=== PATIENT | female | born 1960 ===

== ENCOUNTER 2022-01-03 18:09 | Inpatient (IN) | payer MEDICARE ==
[2022-01-03] MEDS ORDERED: MAG HYDROX/AL HYDROX/SIMETH 30 ML CUP PO PRN (19:13)
[2022-01-04] MEDS: LORazepam 1 MG TAB PO PRN ×2 (02:54→17:03)
[2022-01-04] MEDS: NICOTINE 14MG/24HR PATCH TRANSDERM SCH (07:58)
[2022-01-04] MEDS: LORazepam 2 MG/ML INJ IM PRN ×2 (10:17→21:52)
[2022-01-04] MEDS: HALOPERIDOL LACTATE 5 MG/ML 1 ML VIAL IM PRN ×2 (10:18→21:52)
[2022-01-04 11:16] LABS: Basophils # (A) 0.1 k/uL (0-0.2); Basophils % (A) 1 %; Eosinophils # (A) 0.1 k/uL (0-0.7); Eosinophils % (A) 1 %; Lymphocytes # (A) 1.3 k/uL (1.0-4.8); Lymphocytes % (A) 19 %; MCH 30.8 pg (25.0-35.0); MCV 90.5 fL (80.0-100.0); Mean Platelet Volume 7.7; Monocytes # (A) 0.4 k/uL (0-1.0); Monocytes % (A) 5 %; Neutrophils # (A) 4.9 k/uL (1.3-7.7); Neutrophils % (A) 73 %; Platelet Count 309 k/uL (150-450); RBC 4.53 m/uL (3.80-5.40); RDW 14.2 % (11.5-15.5); WBC 6.8 k/uL (3.8-10.6)
[2022-01-04 11:26] LABS: ALT 16 U/L (4-34); AST 23 U/L (14-36); African American GFR (CKD) >90 (>60 ml/min/1.73 sqM); Albumin 4.5 g/dL (3.5-5.0); Alkaline Phosphatase 79 U/L (38-126); Anion Gap 12 mmol/L; Blood Urea Nitrogen 17 mg/dL (7-17); Calcium 9.6 mg/dL (8.4-10.2); Carbon Dioxide 21 mmol/L (22-30); Chloride 104 mmol/L (98-107); Glucose 105 mg/dL (74-99); Non-African American GFR(CKD) >90 (>60 ml/min/1.73 sqM); Potassium 4.6 mmol/L (3.5-5.1); Sodium 137 mmol/L (137-145); Total Bilirubin 0.5 mg/dL (0.2-1.3); Total Protein 7.4 g/dL (6.3-8.2)
--- NOTE | 2022-01-04 11:38 | P.HP ---
Psychiatric H&P - . H&P Date: 01/04/22 History & Physical: Allergies Allergy/AdvReac Type Severity Reaction Status Date / Time No Known Allergies Allergy Verified 01/04/22 02:35 Vital Signs Temp 97.3 F L 01/04/22 03:27 Pulse 74 01/04/22 03:27 Resp 20 01/04/22 03:27 BP 145/82 01/04/22 03:27 Pulse Ox 98 01/04/22 03:27 FiO2 Intake & Output 01/03/22 01/04/22 01/04/22 18:59 06:59 18:59 Weight 84.5 kg 84.5 kg Laboratory Last Values WBC 6.8 k/uL (3.8-10.6) 01/04/22 10: RBC 4.53 m/uL (3.80-5.40) 01/04/22 10:19 Hgb 14.0 gm/dL (11.4-16.0) 01/04/22 10:19 Hct 41.0 % (34.0-46.0) 01/04/22 10:19 MCV 90.5 fL (80.0-100.0) 01/04/22 10:19 MCH 30.8 pg (25.0-35.0) 01/04/22 10:19 MCHC 34.0 g/dL (31.0-37.0) 01/04/22 10:19 RDW 14.2 % (11.5-15.5) 01/04/22 10:19 Plt Count 309 k/uL (150-450) 01/04/22 10:19 MPV 7.7 01/04/22 10:19 Neutrophils % 73 % 01/04/22 10:19 Lymphocytes % 19 % 01/04/22 10:19 Monocytes % 5 % 01/04/22 10:19 Eosinophils % 1 % 01/04/22 10:19 Basophils % 1 % 01/04/22 10:19 Neutrophils # 4.9 k/uL (1.3-7.7) 01/04/22 10:19 Lymphocytes # 1.3 k/uL (1.0-4.8) 01/04/22 10:19 Monocytes # 0.4 k/uL (0-1.0) 01/04/22 10:19 Eosinophils # 0.1 k/uL (0-0.7) 01/04/22 10:19 Basophils # 0.1 k/uL (0-0.2) 01/04/22 10:19 Sodium 137 mmol/L (137-145) 01/04/22 10:19 Potassium 4.6 mmol/L (3.5-5.1) 01/04/22 10:19 Chloride 104 mmol/L (98-107) 01/04/22 10:19 Carbon Dioxide 21 mmol/L (22-30) L 01/04/22 10:19 Anion Gap 12 mmol/L 01/04/22 10:19 BUN 17 mg/dL (7-17) 01/04/22 10:19 Creatinine 0.64 mg/dL (0.52-1.04) 01/04/22 10:19 Est GFR (CKD-EPI)AfAm >90 (>60 ml/min/1.73 sqM) 01/04/22 10:19 Est GFR (CKD-EPI)NonAf >90 (>60 ml/min/1.73 sqM) 01/04/22 10:19 Glucose 105 mg/dL (74-99) H 01/04/22 10:19 Calcium 9.6 mg/dL (8.4-10.2) 01/04/22 10:19 Total Bilirubin 0.5 mg/dL (0.2-1.3) 01/04/22 10:19 AST 23 U/L (14-36) 01/04/22 10:19 ALT 16 U/L (4-34) 01/04/22 10:19 Alkaline Phosphatase 79 U/L (38-126) 01/04/22 10:19 Total Protein 7.4 g/dL (6.3-8.2) 01/04/22 10:19 Albumin 4.5 g/dL (3.5-5.0) 01/04/22 10:19 01/04/22 11:[address] Juan Summers M.D. dictating the psychiatric assessment on Lara Ingram who is a 61-year-old female and who presents with severe anxiety and depression Patient remains a poor historian and is unable to give proper history When seen today she was sitting in the hallway rambling and talking to one of the staff members and was refusing to come into her room Patient stated that she was in the hospital because they messed up her medic ations at the last hospitalization She says that she has had 5 hospitalizations in the last 2 months and several of them were on the medical floor for hand tremors Patient states that she does not know what is going on She was unable to list her current medications and also is not willing to have any new medications started She states that she has difficulty with making any decisions at this time and wants more time She admits feeling overwhelmed and helpless and hopeless She did not verbalize any suicidal ideations or plans at this time She denied any substance use Patient's home medications includes lisinopril 10 mg daily Ambien 10 mg daily at bedtime when necessary Synthroid 50 g daily Simvastatin 40 mg daily Trazodone 300 mg daily at bedtime Cymbalta 30 mg daily Buspirone 15 mg twice a day And anastrozole 1 mg daily Past history personal and social history Could not be collected at this time due to patient's current mental status where she seemed to be too agitated and anxious and unwilling to give any specific details Further information will be collected at a later date when patient is able to cooperate and participate adequately Mental Status Exam: General Appearance: Patient appears to be stated age, is disheveled, dressed in hospital gown. Sitting on the hallway with her head between her legs slouched posture and anxious Orientation: he is alert, oriented to person, place, Behavior: Patient is anxious. sHe is emotional, no crying Speech: Patient's speech is somewhat pressured and circumstantial Mood/Affect: Mood is anxious Suicidality/Homicidality: Patient denies having any suicidal or homicidal ideation intent or plan. Perceptions: Patient denies any visual hallucinations and denies any auditory hallucinations. Though content: There is evidence of paranoid delusional thought content, although patient comes across as rather projective and seems to rationalize and intellectualize. Thought process: Projective Low self-esteem and confidence Memory and concentration: Grossly intact for the purposes of this session. Judgment and insight: Impaired Problem-solving skills are poor Assessment: Major depressive disorder acute Rule out bipolar disorder depressed type Anxiety disorder unspecified Rule out personality disorder unspecified Plan: -Patient continues to meet criteria for inpatient psychiatric admission for symptom stabilization and safety. -Medications: Continue her general medications for general health issues as prescribed Which includes simvastatin 40 mg daily Anastrozole 1 mg daily Synthroid 50 g daily Patient does not want to take her psychotropic medications at this time and we'll hold them -When necessary Ativan and Haldol for agitation/aggression. -NRT - nicotine patch -KIRSTEN on board for discharge planning. Encouraged the patient to participate in milieu. [ Juan Summers M.D. 01/04/2022]
[2022-01-04] MEDS: lisinopriL 10 MG TAB PO SCH (12:35)
[2022-01-04 18:17] LABS: Chol/HDL Ratio 3.08 Ratio; LDL Cholesterol,Calculated 69.3 mg/dL (0.0-131.0)
[2022-01-05] MEDS: LEVOTHYROXINE 50 MCG TAB PO SCH (05:44)
[2022-01-05] MEDS: haloperidoL 5 MG TAB PO PRN (05:44)
[2022-01-05] MEDS: LORazepam 1 MG TAB PO PRN ×2 (05:44→17:03)
[2022-01-05 06:39] LABS: Appearance,Urine Clear (Clear); Bacteria,Urine Rare /hpf; Bilirubin,Urine Negative (Negative); Blood,Urine Negative (Negative); Color,Urine Yellow; Glucose,Urine (UA) Negative (Negative); Ketones,Urine Negative (Negative); Leukocyte Esterase,Urine Small (Negative); Mucus,Urine Few /hpf; Nitrite,Urine Negative (Negative); PH, Urine 5.5 (5.0-8.0); Protein,Urine Negative (Negative); RBC,Urine 1 /hpf (0-5); Specific Gravity,Urine 1.012 (1.001-1.035); Squamous Epithelial Cell,Urine <1 /hpf (0-4); Urobilinogen,Urine <2.0 mg/dL (<2.0); WBC,Urine 7 /hpf (0-5)
[2022-01-05] MEDS: ANASTROZOLE 1 MG TAB PO SCH (09:18)
[2022-01-05] MEDS: lisinopriL 10 MG TAB PO SCH (09:18)
[2022-01-05] MEDS: ATORVASTATIN 20 MG TAB PO SCH (09:18)
[2022-01-05] MEDS: NICOTINE 14MG/24HR PATCH TRANSDERM SCH (09:20)
[2022-01-05 09:38] LABS: Urine Alcohol Negative (Negative); Urine Barbiturate Positive (Negative); Urine Cocaine Negative (Negative); Urine Methadone Negative (Negative); Urine Opiates Negative (Negative); Urine Phencyclidine Negative (Negative)
[2022-01-05] MEDS: MAGNESIUM HYDROXIDE 2,400 MG/10 ML CUP PO PRN (09:58)
[2022-01-05] MEDS ORDERED: PROPRANOLOL 20 MG TAB PO STA (11:40)
[2022-01-05] MEDS ORDERED: chlorproMAZINE 25 MG TAB PO STA (11:41)
[2022-01-05] MEDS ORDERED: hydrOXYzine pamoate 25 MG CAP PO STA (11:42)
--- NOTE | 2022-01-05 13:20 | P.PN ---
Progress Note - Text Progress Note Date: 01/05/22 Interval History: Patient was seen resting in bed and was directable and agreeable to speak with securities underwriter in the office. The patient reports that she has been unable to sleep. She expresses that she has been feeling very unwell for the past few months with worsening tremors, excessive energy, racing thoughts, and an inability to focus. The patient reports that she also has been acting impulsively lately and spent $800 on a cell phone because she felt that her current cell phone was not working appropriately in that she was missing some messages. The patient is agreeable to starting psychotropic medications at this time. Her primary focus is to get some sleep. Mental Status Exam: General Appearance: Patient appears to be stated age is alert, directable, and cooperative. At times demanding. Behavior: Patient is quite tremulous throughout the interview. Eye contact is intense. Psychomotor agitation is evident. Speech: Patient's speech is fluent and nonpressured. Repetitive and ruminative. Mood/Affect: Mood is "not good at all," affect is congruent and dysphoric. Suicidality/Homicidality: Patient denies having any suicidal or homicidal ideation intent or plan. Perceptions: Patient denies any visual hallucinations and denies any auditory hallucinations Though content/process: The patient is endorsing a flight of ideas and racing thoughts. The patient also reports extremely worried thoughts. Memory and concentration: AOX3, grossly intact for the purposes of this session Judgment and insight: Poor Vital Signs Temp 97.0 F L 01/05/22 05:49 Pulse 73 01/05/22 05:49 Resp 20 01/05/22 05:49 BP 111/75 01/05/22 05:49 Pulse Ox 98 01/04/22 03:27 FiO2 Intake & Output 01/04/22 01/05/22 01/05/22 18:59 06:59 18:59 Weight 84.5 kg Laboratory Results - Last 24 Hours 01/04/22 01/04/22 01/05/22 10:19 10:19 06:[address] Glu mg/dL 112 Hemoglobin A1c 5.5 Triglycerides 123.00 Cholesterol 139.00 LDL Cholesterol, Calc 69.3 VLDL Cholesterol, Calc 24.60 HDL Cholesterol 45.10 Cholesterol/HDL Ratio 3.08 Urine Color Yellow Urine Appearance Clear Urine pH 5.5 Ur Specific [place] 1.012 Urine Protein Negative Urine Glucose (UA) Negative Urine Ketones Negative Urine Blood Negative Urine Nitrite Negative Urine Bilirubin Negative Urine Urobilinogen <2.0 Ur Leukocyte Esterase Small H Urine RBC 1 Urine WBC 7 H Ur Squamous Epith Cells <1 Urine Bacteria Rare H Urine Mucus Few H Urine HCG, Qual Urine Opiates Screen Urine Methadone Screen Ur Propoxyphene Screen Urine Barbiturates Ur Phencyclidine Scrn Ur Amphetamine Screen U Benzodiazepines Scrn Urine Cocaine Screen U Cannabinoids Screen Urine Alcohol 01/05/22 01/05/22 06:00 06:[address] Glu mg/dL Hemoglobin A1c Triglycerides Cholesterol LDL Cholesterol, Calc VLDL Cholesterol, Calc HDL Cholesterol Cholesterol/HDL Ratio Urine Color Urine Appearance Urine pH Ur Specific [place] Urine Protein Urine Glucose (UA) Urine Ketones Urine Blood Urine Nitrite Urine Bilirubin Urine Urobilinogen Ur Leukocyte Esterase Urine RBC Urine WBC Ur Squamous Epith Cells Urine Bacteria Urine Mucus Urine HCG, Qual Not Detected Urine Opiates Screen Negative Urine Methadone Screen Negative Ur Propoxyphene Screen Negative Urine Barbiturates Positive A Ur Phencyclidine Scrn Negative Ur Amphetamine Screen Negative U Benzodiazepines Scrn Negative Urine Cocaine Screen Negative U Cannabinoids Screen Negative Urine Alcohol Negative Assessment Bipolar disorder, type I, mixed episode Generalized anxiety disorder Plan: -Patient continues to meet criteria for inpatient psychiatric admission for symptom stabilization and safety. Patient has signed adult voluntary form and medication consent and was placed in patient's chart. -Medications: We will administer one-time dose of Thorazine and Vistaril for the patient's acute symptoms. We will start Inderal 20 mg by mouth twice a day for anxiety and for tremors Start Seroquel 200 mg daily at bedtime for insomnia/mood stabilization Start Remeron 15 mg by mouth at bedtime for insomnia/appetite stimulation -When necessary Ativan and Haldol for agitation/aggression. -SW on board for discharge planning. Encouraged the patient to participate in milieu.
[2022-01-05] MEDS: ACETAMINOPHEN TAB 325 MG TAB PO PRN (18:32)
[2022-01-05] MEDS ORDERED: LORazepam 1 MG/0.5 ML VIAL IM PRN (18:41)
[2022-01-05] MEDS: PROPRANOLOL 20 MG TAB PO SCH (20:39)
[2022-01-05] MEDS ORDERED: MIRTAZAPINE 15 MG TAB PO SCH (21:00)
[2022-01-05] MEDS ORDERED: QUEtiapine 200 MG TAB PO SCH (21:00)
[2022-01-06] MEDS: LEVOTHYROXINE 50 MCG TAB PO SCH (06:31)
[2022-01-06] MEDS: LORazepam 1 MG TAB PO PRN ×2 (06:32→13:42)
[2022-01-06] MEDS: haloperidoL 5 MG TAB PO PRN ×2 (06:32→14:33)
[2022-01-06] MEDS: ANASTROZOLE 1 MG TAB PO SCH (08:58)
[2022-01-06] MEDS: lisinopriL 10 MG TAB PO SCH (08:58)
[2022-01-06] MEDS: ATORVASTATIN 20 MG TAB PO SCH (08:58)
[2022-01-06] MEDS: PROPRANOLOL 20 MG TAB PO SCH ×3 (08:59→21:59)
[2022-01-06] MEDS: NICOTINE 14MG/24HR PATCH TRANSDERM SCH (10:21)
--- NOTE | 2022-01-06 13:38 | P.PN ---
Progress Note - Text Progress Note Date: 01/06/22 Interval History: Patient was seen resting in bed and was directable and agreeable to speak with specifications writer in the office. The patient continues to endorse elevated anxiety and panic. She does report that she had difficulty with sleep last night and has continued to express concern about her ability to function and participate in society. She states that things are "just not getting better." She continues to endorse suicidal ideation however denies any homicidal ideation, intention, and/or plan. She reports no auditory or visualizations. She denies any paranoia or other delusions. The patient has been adherent with her medications and is not reporting any significant side effects at this time. She states that she has been unable to sleep despite staff noting that she was able to sleep 5-6 hours last night. The patient was encouraged to step outside of her room to help address her anxiety so that she may ease herself into being in more of a public space. Mental Status Exam: General Appearance: Patient appears to be stated age is alert, directable, and cooperative. Behavior: Patient is calmly seated without any agitated behavior. Patient displays some tremors but is less prominent than yesterday. Speech: Patient's speech is fluent and nonpressured. Mood/Affect: Mood is very. Affect is congruent and anxious. Suicidality/Homicidality: Patient endorses suicidal ideation however denies any homicidal ideation. Perceptions: Patient denies any visual hallucinations and denies any auditory hallucinations Though content/process: There is no evidence of any delusional thought content and thought process is linear and goal-directed. Memory and concentration: AOX3, grossly intact for the purposes of this session Judgment and insight: Improving mildly Vital Signs Temp 97.9 F 01/06/22 06:38 Pulse 84 01/06/22 09:01 Resp 18 01/06/22 06:38 BP 164/108 01/06/22 09:01 Pulse Ox 98 01/06/22 06:38 FiO2 Assessment Bipolar disorder, type I, mixed episode Generalized anxiety disorder Plan: -Patient continues to meet criteria for inpatient psychiatric admission for symptom stabilization and safety. Patient has signed adult voluntary form and medication consent and was placed in patient's chart. -Medications: We'll increase Inderal to 20 mg by mouth 3 times a day for anxiety and for tremors Increase Seroquel to 300 mg at bedtime for insomnia/mood stabilization We will change Remeron to Sinequan 25 mg at bedtime for insomnia/anxiety -When necessary Ativan and Haldol for agitation/aggression. -SW on board for discharge planning. Encouraged the patient to participate in milieu.
[2022-01-06] MEDS: ACETAMINOPHEN TAB 325 MG TAB PO PRN (19:16)
[2022-01-06] MEDS: QUEtiapine 100 MG TAB PO SCH (20:29)
[2022-01-06] MEDS ORDERED: DOXEPIN 25 MG CAP PO SCH (21:00)
[2022-01-07] MEDS: haloperidoL 5 MG TAB PO PRN (01:41)
[2022-01-07] MEDS: LORazepam 1 MG TAB PO PRN (01:41)
[2022-01-07] MEDS: LEVOTHYROXINE 50 MCG TAB PO SCH (06:56)
[2022-01-07] MEDS: lisinopriL 10 MG TAB PO SCH (08:51)
[2022-01-07] MEDS: ATORVASTATIN 20 MG TAB PO SCH (08:51)
[2022-01-07] MEDS: ANASTROZOLE 1 MG TAB PO SCH (08:51)
[2022-01-07] MEDS: PROPRANOLOL 20 MG TAB PO SCH ×3 (08:51→20:34)
[2022-01-07] MEDS: MAGNESIUM HYDROXIDE 2,400 MG/10 ML CUP PO PRN (08:52)
[2022-01-07] MEDS ORDERED: LORazepam 1 MG TAB PO STA (10:06)
[2022-01-07] MEDS: LORazepam 1 MG/0.5 ML VIAL IM STA ×3 (10:15→11:31)
--- NOTE | 2022-01-07 11:45 | P.PN ---
Progress Note - Text Progress Note Date: 01/07/22 Interval History: Patient was seen resting in bed and was directable and agreeable to speak with hand sign writer in the office. The patient continues to endorse elevated anxiety and her difficulty in falling asleep. She continues to report constantly racing thoughts. She states repetitively "I am not well, I am not well, I am not well." She reports that her issues with sleep and anxiety are not being appropriately addressed. She is not reporting any suicidal or homicidal angélica ation, intention,/or plan. However in the office, the patient comes quite tremulous and ruminative and non-directable. It takes her approximately 5 minutes to collect herself before being redirected out of the room to receive Ativan. Mental Status Exam: General Appearance: Patient appears to be stated age is alert, difficult to direct, and intermittently cooperative. Behavior: Patient displays elevated psychomotor activity, tremulousness, and at times appears to be "locked and frozen in place." Speech: Patient's speech is fluent and nonpressured. Mood/Affect: Mood is very nervous. Affect is congruent and very anxious and dysphoric. Suicdality/Homicidality: Patient denies any suicidal or homicidal ideation. Perceptions: Patient denies any visual hallucinations and denies any auditory h allucinations Though content/process: Patient is fixated on her symptoms of anxiety and difficulty with sleep despite staff noting that she has been sleeping despite staff noting that her complaints of shortness of breath and palpitations are not consistent with her physical presentation with stable vitals. Memory and concentration: AOX3, grossly intact for the purposes of this session Judgment and insight: Poor Vital Signs Temp 97.7 F 01/07/22 06:42 Pulse 82 01/07/22 08:55 Resp 14 01/07/22 06:42 BP 133/73 01/07/22 08:55 Pulse Ox 98 01/06/22 20:31 FiO2 Assessment Bipolar disorder, type I, mixed episode Generalized anxiety disorder with panic Plan: -Patient continues to meet criteria for inpatient psychiatric admission for symptom stabilization and safety. Patient has signed adult voluntary form and medication consent and was placed in patient's chart. -Medications: Continue Inderal 20 mg by mouth 3 times a day for anxiety and for tremors Increase Seroquel to 50 mg in the morning and 300 mg at bedtime for insomnia/mood stabilization Increase Sinequan to 50 mg at bedtime for insomnia/anxiety -When necessary Ativan and Haldol for agitation/aggression. -SW on board for discharge planning. Encouraged the patient to participate in milieu.
--- NOTE | 2022-01-07 15:55 | P.CONS ---
History of Present Illness - Chief Complaint Depression - History of Present Illness 89-year-old female with past medical history significant for breast cancer status post left-sided mastectomy with chemo radiation on May 18 she is currently on hormonal therapy with anastrozole. Patient also has history of hypertension and dyslipidemia and hypothyroidism. Admitted to the psych at on July 07 with severe depression and anxiety. Patient is very anxious during the interview. She is alert oriented 3. She denies any chest pain or shortness of breath. Patient denies any nausea vomiting or abdominal pain. Patient denies any fever chills or cough. She stated that she is compliant with her medication. Other than she is very anxious and depressed she denies any complaints. Review of system: All 14 review of systems evaluated and all negative except for above. Physical examination: General: non toxic, very anxious, appears at stated age Derm: warm, dry Head: atraumatic, normocephalic, symmetric Eyes: EOMI, no lid lag, anicteric sclera Mouth: no lip lesion, mucus membranes moist Cardiovascular: S1S2 reg, no murmur, positive posterior tibial pulse bilateral, Lungs: CTA bilateral, no rhonchi, no rales , no accessory muscle use Abdominal: soft, nontender to palpation, no guarding, no appreciable organomegaly Ext: no gross muscle atrophy, no edema, no contractures Neuro: CN II-XI grossly intact, no focal neuro deficits Psych: Alert, oriented, appropriate affect Assessment and plan: #Depression and anxiety -Management per psych service #Hypothyroidism -TSH is slightly elevated with normal T4 -Repeat thyroid testing -Resume levothyroxine #Hypertension -Controlled -Resume lisinopril #History of breast cancer status post left mastectomy with chemo radiation -Resume anastrozole #Dyslipidemia -Resume Zocor Past Medical History Past Medical History: Hyperlipidemia, Hypertension Additional Past Medical History / Comment(s): UTI and Breast cancer History of Any Multi-Drug Resistant Organisms: None Reported Past Surgical History: No Surgical Hx Reported Past Anesthesia/Blood Transfusion Reactions: No Reported Reaction Smoking Status: Never smoker Medications and Allergies Home Medications Medication Instructions Recorded Confirmed Type Anastrozole 1 mg PO DAILY 01/04/22 01/04/22 History DULoxetine HCL [Cymbalta] 30 mg PO DAILY 01/04/22 01/04/22 History Levothyroxine Sodium [Synthroid] 50 mcg PO DAILY 01/04/22 01/04/22 History Simvastatin 40 mg PO DAILY 01/04/22 01/04/22 History Zolpidem [Ambien] 10 mg PO HS PRN 01/04/22 01/04/22 History busPIRone HCl [Buspar] 15 mg PO BID 01/04/22 01/04/22 History lisinopriL [Zestril] 10 mg PO DAILY 01/04/22 01/04/22 History traZODone HCL [Trazodone HCl] 300 mg PO HS 01/04/22 01/04/22 History Allergies Allergy/AdvReac Type Severity Reaction Status Date / Time No Known Allergies Allergy Verified 01/04/22 02:35 Physical Exam Vitals: Vital Signs Temp Pulse Pulse Resp BP BP Pulse Ox 01/07/22 08:55 82 133/73 01/07/22 06:42 97.7 F 65 14 101/53 01/07/22 01:40 79 16 117/56 01/06/22 20:31 72 17 117/71 98 01/06/22 16:23 77 127/82 Results CBC & Chem 7: 01/04/22 10:19 01/04/22 10:19
[2022-01-07] MEDS: QUEtiapine 100 MG TAB PO SCH (20:32)
[2022-01-07] MEDS: ACETAMINOPHEN TAB 325 MG TAB PO PRN (20:34)
[2022-01-07] MEDS: DOXEPIN 25 MG CAP PO SCH (21:14)
[2022-01-08] MEDS: haloperidoL 5 MG TAB PO PRN (00:19)
[2022-01-08] MEDS: LORazepam 1 MG TAB PO PRN ×2 (00:19→13:44)
[2022-01-08] MEDS: LEVOTHYROXINE 50 MCG TAB PO SCH (06:55)
[2022-01-08] MEDS: HALOPERIDOL LACTATE 5 MG/ML 1 ML VIAL IM PRN (08:58)
[2022-01-08] MEDS ORDERED: QUEtiapine 50 MG TAB PO SCH (09:00)
[2022-01-08] MEDS: ANASTROZOLE 1 MG TAB PO SCH (09:04)
[2022-01-08] MEDS: lisinopriL 10 MG TAB PO SCH (09:04)
[2022-01-08] MEDS: ATORVASTATIN 20 MG TAB PO SCH (09:04)
[2022-01-08] MEDS: PROPRANOLOL 20 MG TAB PO SCH ×3 (09:04→21:10)
[2022-01-08] MEDS ORDERED: chlorproMAZINE 25 MG/ML 2 ML AMP IM PRN (09:39)
[2022-01-08] MEDS ORDERED: chlorproMAZINE 25 MG/ML 2 ML AMP IM STA (09:59)
--- NOTE | 2022-01-08 11:48 | P.PN ---
Progress Note - Text Progress Note Date: 01/08/22 Interval History: Patient was seen resting in bed and was directable and agreeable to speak with personal lines underwriter in the office. The patient had an episode earlier today where she was "unable to be alone." She was found laying on the floor of the engines to her room. She was also noted to be hitting the wall as well as herself. The patient states that she is unable to control her racing mind and that she feels out of control. She has been placed on one-to-one supervision. The patient expresses that she continues to feel extremely anxious and unable to sleep, rest, and have her mind slow down. She reports that none of the medication have been helping. She denies any suicidal or homicidal ideation, intention, and/or plan. She denies any auditory or visual hallucinations. She reports that she decided to hit herself because she felt like there is nothing else for her to do in order to calm down. Mental Status Exam: General Appearance: Patient appears to be stated age is alert, difficult to direct, and intermittently cooperative. Behavior: Patient displays elevated psychomotor activity, tremulousness Speech: Patient's speech is fluent and nonpressured. Mood/Affect: Mood is very nervous. Affect is congruent and very anxious and dysphoric. Suicdality/Homicidality: Patient denies any suicidal or homicidal ideation. Perceptions: Patient denies any visual hallucinations and denies any auditory hallucinations Though content/process: Ruminative and concrete. Memory and concentration: AOX3, grossly intact for the purposes of this session Judgment and insight: Poor Vital Signs Temp 97.5 F L 01/08/22 03:30 Pulse 79 01/08/22 09:10 Resp 18 01/08/22 03:30 BP 129/73 01/08/22 09:10 Pulse Ox 98 01/06/22 20:31 FiO2 Laboratory Results - Last 24 Hours 01/07/22 16:00 TSH 4.350 Assessment Bipolar disorder, type I, mixed episode Generalized anxiety disorder with panic Plan: -Patient continues to meet criteria for inpatient psychiatric admission for sy mptom stabilization and safety. Patient has signed adult voluntary form and medication consent and was placed in patient's chart. -Medications: Continue Inderal 20 mg by mouth 3 times a day for anxiety and for tremors Discontinue Seroquel and start Risperdal 3 mg by mouth twice a day for mood stabilization Continue Sinequan 50 mg at bedtime for insomnia/anxiety We will schedule Valium 5 mg by mouth 3 times a day for anxiety -When necessary Ativan and Thorazine for agitation/aggression. -SW on board for discharge planning. Encouraged the patient to participate in milieu.
[2022-01-08] MEDS: diazePAM 5 MG TAB PO SCH ×2 (15:17→20:45)
[2022-01-08] MEDS: ACETAMINOPHEN TAB 325 MG TAB PO PRN (17:08)
[2022-01-08] MEDS: risperiDONE 1 MG TAB PO SCH (20:45)
[2022-01-08] MEDS: DOXEPIN 25 MG CAP PO SCH (20:45)
[2022-01-08] MEDS: BENZTROPINE MESYLATE 0.5 MG TAB PO SCH (20:45)
[2022-01-09] MEDS: LORazepam 1 MG TAB PO PRN ×2 (06:36→13:27)
[2022-01-09] MEDS: LEVOTHYROXINE 50 MCG TAB PO SCH (06:36)
[2022-01-09] MEDS: ANASTROZOLE 1 MG TAB PO SCH (08:24)
[2022-01-09] MEDS: lisinopriL 10 MG TAB PO SCH (08:24)
[2022-01-09] MEDS: ATORVASTATIN 20 MG TAB PO SCH (08:24)
[2022-01-09] MEDS: diazePAM 5 MG TAB PO SCH ×3 (08:24→20:46)
[2022-01-09] MEDS: PROPRANOLOL 20 MG TAB PO SCH ×3 (08:24→20:47)
[2022-01-09] MEDS: risperiDONE 1 MG TAB PO SCH (08:24)
[2022-01-09] MEDS: BENZTROPINE MESYLATE 0.5 MG TAB PO SCH ×2 (08:24→20:45)
--- NOTE | 2022-01-09 18:26 | P.PN ---
Progress Note - Text Progress Note Date: 01/09/22 Interval History: Patient was seen resting in bed and was directable and agreeable to speak with expert medical writer in the office. She reports her mind is racing, has not been able to participate in groups. She has been sleeping 1-2 hours per night per her report. Her speech is somewhat pressured. The patient expresses that she continues to feel extremely anxious and unable to sleep, rest, and have her mind slow down. She denies any suicidal or homicidal ideation, intention, and/or plan. She denies any auditory or visual hallucinations. She reports her medications are not working and she has a hard time recalling what she has taken in the past. We called her [facility] in [place] with her permission to review her past medications. She was previously on Xanax, Buspirone, Depakote, Cymbalta, Remeron, Zyprexa, Seroquel, Risperdal, Trazodone, Ambien. She reports she has been isolating to her room and reports she has not been going to groups due to a "fear of people". Mental Status Exam: General Appearance: Patient appears to be stated age is alert, short hair, dressed in casual attire. Orientation: Alert and oriented to person, place, time. Behavior: Patient appears restless. Speech: Patient's speech is somewhat pressured. Mood/Affect: Affect is congruent and very anxious and dysphoric. Suicdality/Homicidality: Patient denies any suicidal or homicidal ideation, plan or intent. Perceptions: Patient denies any visual hallucinations and denies any auditory hallucinations Though content/process: Ruminative and catastrophic. Memory and concentration: Remote memory impaired. Judgment and insight: Poor Assessment Bipolar disorder, type I, mixed episode Generalized anxiety disorder with panic Plan: -Patient continues to meet criteria for inpatient psychiatric admission for symptom stabilization and safety. Patient has signed adult voluntary form and medication consent and was placed in patient's chart. -Medications: Continue Inderal 20 mg by mouth 3 times a day for anxiety and for tremors Continue Risperdal 4 mg by mouth twice a day for mood stabilization Decrease Valium to 5 mg BID for anxiety. Continue Sinequan 50 mg at bedtime for insomnia/anxiety -When necessary Ativan and Thorazine for agitation/aggression. -SW on board for discharge planning. Encouraged the patient to participate in milieu.
[2022-01-09] MEDS: risperiDONE 2 MG TAB PO SCH (20:47)
[2022-01-09] MEDS: DOXEPIN 25 MG CAP PO SCH (20:47)
[2022-01-10] MEDS: LEVOTHYROXINE 50 MCG TAB PO SCH (06:26)
[2022-01-10] MEDS: BENZTROPINE MESYLATE 0.5 MG TAB PO SCH ×2 (08:17→20:40)
[2022-01-10] MEDS: lisinopriL 10 MG TAB PO SCH (08:17)
[2022-01-10] MEDS: diazePAM 5 MG TAB PO SCH (08:17)
[2022-01-10] MEDS: PROPRANOLOL 20 MG TAB PO SCH ×3 (08:17→20:39)
[2022-01-10] MEDS: ATORVASTATIN 20 MG TAB PO SCH (08:17)
[2022-01-10] MEDS: risperiDONE 2 MG TAB PO SCH (08:17)
[2022-01-10] MEDS: ANASTROZOLE 1 MG TAB PO SCH (08:18)
[2022-01-10] MEDS: LORazepam 1 MG TAB PO PRN (11:45)
[2022-01-10] MEDS ORDERED: VENLAFAXINE HCL ER 37.5 MG CAP PO STA (16:32)
--- NOTE | 2022-01-10 16:42 | P.PN ---
Progress Note - Text Progress Note Date: 01/10/22 Interval History: Patient was seen resting in bed and was directable and agreeable to speak with group underwriter in the office. She reports she tried to go to one group today for about 10 minutes, but got up and had to leave due to high anxiety. She reports sleeping a couple hours of sleep last night. The patient expresses that she continues to feel extremely anxious. She is worrying what is going to happen to her here, what will happen when she leaves here. Thought content is eliezer strophic. She reports "trauma" from a "nervous breakdown". She demonstrates poor coping skills. She replies to most questions with "I don't know", "I can't", "I can't remember". She appears to perseverate on past failures and worry about the future, is currently worrying about how much this hospitalization will cost and how she will pay for it, how she will manage her medications. She denies any s uicidal or homicidal ideation, intention, and/or plan. She denies any auditory or visual hallucinations. She continues to isolate and she has been isolating to her room, and reports she has not been going to groups due to a "fear of people". Mental Status Exam: General Appearance: Patient appears to be stated age is alert, short hair, dressed in casual attire. Orientation: Alert and oriented to person, place, time. Behavior: Patient appears restless, some shaking in legs observed. Speech: Patient's speech is rapid but not pressured. Mood/Affect: Affect is congruent and very anxious and dysphoric. Suicdality/Homicidality: Patient denies any suicidal or homicidal ideation, plan or intent. Perceptions: Patient denies any visual hallucinations and denies any auditory hallucinations. Though content/process: Ruminative and catastrophic. Memory and concentration: Remote memory impaired. Judgment and insight: Poor Assessment Major depressive disorder, recurrent severe with psychotic features Generalized anxiety disorder with panic Plan: -Patient continues to meet criteria for inpatient psychiatric admission for symptom stabilization and safety. Patient has signed adult voluntary form and medication consent and was placed in patient's chart. -Medications: Start Remeron 15 mg QHS for depression/sleep, starting tonight. Start Effexor XR 75 mg daily in the morning starting tomorrow AM for depression/anxiety. Continue Inderal 20 mg by mouth 3 times a day for anxiety and for tremors Decrease Risperdal to 3 mg by mouth twice a day for mood stabilization, due to tremors. Decrease Valium to 2 mg BID for anxiety due to confusion, with plan to discontinue as tolerated. Discontinue Sinequan 50 mg at bedtime for insomnia/anxiety due to lack of benefit. -When necessary Ativan and Thorazine for agitation/aggression. -SW on board for discharge planning. Encouraged the patient to participate in milieu.
[2022-01-10] MEDS: risperiDONE 1 MG TAB PO SCH (20:39)
[2022-01-10] MEDS: diazePAM 2 MG TAB PO SCH (20:39)
[2022-01-10] MEDS: MIRTAZAPINE 15 MG TAB PO SCH (20:40)
[2022-01-11] MEDS: LORazepam 1 MG TAB PO PRN ×2 (02:19→11:35)
[2022-01-11] MEDS: LEVOTHYROXINE 50 MCG TAB PO SCH (06:45)
[2022-01-11] MEDS: risperiDONE 1 MG TAB PO SCH ×2 (08:49→21:34)
[2022-01-11] MEDS: lisinopriL 10 MG TAB PO SCH (08:49)
[2022-01-11] MEDS: BENZTROPINE MESYLATE 0.5 MG TAB PO SCH ×2 (08:49→21:33)
[2022-01-11] MEDS: diazePAM 2 MG TAB PO SCH ×2 (08:49→21:33)
[2022-01-11] MEDS: PROPRANOLOL 20 MG TAB PO SCH ×3 (08:49→21:34)
[2022-01-11] MEDS: VENLAFAXINE HCL ER 75 MG CAP PO SCH (08:49)
[2022-01-11] MEDS: ATORVASTATIN 20 MG TAB PO SCH (08:49)
[2022-01-11] MEDS: ANASTROZOLE 1 MG TAB PO SCH (08:50)
[2022-01-11 16:39] VITALS: RESP 16
--- NOTE | 2022-01-11 19:15 | P.PN ---
Progress Note - Text Progress Note Date: 01/11/22 Interval History: Patient was seen talking on the phone and then walking to her room. She was directable and agreeable to speak with personal lines underwriter in the office. Objectively, she appears to be doing better today, appears calmer, however he continues to have multiple complaints, reports she didn't sleep last night. Per staff, she is recorded as having slept 5 hours. She reports her mood is "pretty down". She reports good appetite. She complains of her mind racing. Thought content is catastrophic. She continues to have a very negative opinion of herself and her surroundings. She reports she has difficulty focusing in groups, chronic worries, restless, feels like she forgets things easily. She denies any suicidal or homicidal ideation, intention, and/or plan. She denies any auditory or visual hallucinations. She continues to isolate and she has been isolating to her room, and reports she is having multiple panic attacks per day that she estimates as 20-30 panic attacks her day. Mental Status Exam: General Appearance: Patient appears to be stated age is alert, short hair, dressed in casual attire. Orientation: Alert and oriented to person, place, time. Behavior: Patient appears restless, some shaking in legs observed. Speech: Patient's speech is rapid but not pressured. Mood/Affect: Affect is congruent and very anxious and dysphoric. Suicdality/Homicidality: Patient denies any suicidal or homicidal ideation, plan or intent. Perceptions: Patient denies any visual hallucinations and denies any auditory hallucinations. Though content/process: Ruminative and catastrophic. Memory and concentration: Remote memory impaired. Judgment and insight: Poor Assessment Major depressive disorder, recurrent severe with psychotic features Generalized anxiety disorder with panic Plan: -Patient continues to meet criteria for inpatient psychiatric admission for symptom stabilization and safety. Patient has signed adult voluntary form and medication consent and was placed in patient's chart. -Medications: Continue Remeron 15 mg QHS for depression/sleep, starting tonight. Increase Effexor XR to 112.5 mg daily in the morning starting tomorrow AM for depression/anxiety. Continue Inderal 20 mg by mouth 3 times a day for anxiety and for tremors Continue Risperdal 3 mg by mouth twice a day for mood stabilization. Continue Valium 2 mg BID for anxiety due to confusion, with plan to discontinue as tolerated. -When necessary Ativan and Thorazine for agitation/aggression. -SW on board for discharge planning. Encouraged the patient to participate in milieu.
[2022-01-11] MEDS: MIRTAZAPINE 15 MG TAB PO SCH (21:33)
[2022-01-12] MEDS: LORazepam 1 MG TAB PO PRN (02:37)
[2022-01-12] MEDS: LEVOTHYROXINE 50 MCG TAB PO SCH (06:20)
[2022-01-12] MEDS: BENZTROPINE MESYLATE 0.5 MG TAB PO SCH (08:21)
[2022-01-12] MEDS: ATORVASTATIN 20 MG TAB PO SCH (08:21)
[2022-01-12] MEDS: ANASTROZOLE 1 MG TAB PO SCH (08:21)
[2022-01-12] MEDS: PROPRANOLOL 20 MG TAB PO SCH ×3 (08:22→20:41)
[2022-01-12] MEDS: VENLAFAXINE HCL ER 75 MG CAP PO SCH (08:22)
[2022-01-12] MEDS: diazePAM 2 MG TAB PO SCH (08:22)
[2022-01-12] MEDS: risperiDONE 1 MG TAB PO SCH (08:22)
[2022-01-12] MEDS: lisinopriL 10 MG TAB PO SCH (08:22)
[2022-01-12] MEDS ORDERED: VENLAFAXINE HCL ER 37.5 MG CAP PO SCH (09:00)
--- NOTE | 2022-01-12 11:47 | P.PN ---
Progress Note - Text Progress Note Date: 01/12/22 Interval History: Patient was seen isolating to her room and was directable and agreeable to speak with pattern chart writer in the office, however could only tolerate being in the office for less than 10 minutes before she abruptly got up and left due to feeling of panic attacks. She reports feeling "worse", "each day that I'm hear I feel worse and worse". She reports recurrent panic attacks, including feeling dizzy, racing heart, shaking/trembling, unsteady, and shortness of breath, fear of dying. She reports agoraphobia including fear/discomfort of being in a room with others due to feelings of panic, entrapment, helplessness, and embarrassment. She has had difficulty leaving her house for the past couple months, fear of crowds. She has a long history of panic attacks but cannot recall when these first started. She is avoiding groups here and continues to isolate to her room. She reports she attended group this morning for 5 minutes but started to panic and so she went back to her room. She complains of her jaw shaking today. Mental Status Exam: General Appearance: Patient appears to be stated age is alert, short hair, dressed in casual attire. Orientation: Alert and oriented to person, place, time. Behavior: Patient appears restless, some shaking in legs observed. Speech: Patient's speech is rapid but not pressured. Mood/Affect: Mood is very anxious, and affect is congruent/very anxious/dysphoric. Suicdality/Homicidality: Patient denies any suicidal or homicidal ideation, plan or intent. Perceptions: Patient denies any visual hallucinations and denies any auditory hallucinations. Though content/process: Ruminative and catastrophic. Memory and concentration: Remote memory impaired. Judgment and insight: Poor Assessment Major depressive disorder, recurrent severe with psychotic features Generalized anxiety disorder Panic disorder with agoraphobia (provisional) Plan: -Patient continues to meet criteria for inpatient psychiatric admission for symptom stabilization and safety. Patient has signed adult voluntary form and medication consent and was placed in patient's chart. -Medications: Continue Remeron 15 mg QHS for depression/sleep. Increase Effexor XR to 150 mg daily in the morning starting tomorrow AM for depression/anxiety. Continue Inderal 20 mg by mouth 3 times a day for anxiety and for tremors Increase Cogentin to 1 mg BID for EPS. Decrease Risperdal to 2 mg by mouth twice a day for mood stabilization, due to side effects. Discontinue Valium 2 mg BID for anxiety due to confusion. Decrease Ativan to 0.5 mg BID PRN for anxiety. -When necessary Ativan and Thorazine for agitation/aggression. -SW on board for discharge planning. Encouraged the patient to participate in milieu.
[2022-01-12] MEDS: MIRTAZAPINE 15 MG TAB PO SCH (20:43)
[2022-01-12] MEDS: risperiDONE 2 MG TAB PO SCH (20:43)
[2022-01-12] MEDS: BENZTROPINE MESYLATE 1 MG TAB PO SCH (20:43)
[2022-01-12] MEDS ORDERED: LORazepam 0.5 MG TAB PO SCH (21:00)
[2022-01-13] MEDS: chlorproMAZINE 25 MG TAB PO PRN (01:13)
[2022-01-13] MEDS: LORazepam 0.5 MG TAB PO PRN ×2 (01:13→08:37)
[2022-01-13] MEDS: LEVOTHYROXINE 50 MCG TAB PO SCH (06:13)
[2022-01-13 06:37] VITALS: TEMP 97.6
[2022-01-13] MEDS: risperiDONE 2 MG TAB PO SCH ×2 (08:35→20:37)
[2022-01-13] MEDS: PROPRANOLOL 20 MG TAB PO SCH ×3 (08:35→20:36)
[2022-01-13] MEDS: BENZTROPINE MESYLATE 1 MG TAB PO SCH ×2 (08:36→20:36)
[2022-01-13] MEDS: lisinopriL 10 MG TAB PO SCH (08:36)
[2022-01-13] MEDS: VENLAFAXINE HCL ER 150 MG CAP PO SCH (08:36)
[2022-01-13] MEDS: ANASTROZOLE 1 MG TAB PO SCH (08:36)
[2022-01-13] MEDS: ATORVASTATIN 20 MG TAB PO SCH (08:37)
--- NOTE | 2022-01-13 11:36 | P.PN ---
Progress Note - Text Progress Note Date: 01/13/22 Interval History: Patient was seen isolating to her room and was directable and agreeable to speak with account underwriter in the office. The patient used to be very dysphoric and states that "this is the worse I have ever felt." She was informed that she appears to have increased range of affect and is apparently able to communicate compared to her previous presentations to this provider. The patient was seen by neurology for her tremors that she continuously expresses concern about. The patient however is noted to have significant improvement in her tremors when she walks, is observed without her knowing, or when following directions. Her tremors are primarily present when sitting down for a formal interview and expressing concerns for anxiety. She denies any suicidal or homicidal ideation, intention, and/or plan. She reports no auditory or visual hallucinations. She reports no paranoia. She remains primarily anxious. Mental Status Exam: General Appearance: Patient appears to be stated age is alert, short hair, dressed in casual attire. Orientation: Alert and oriented to person, place, time. Behavior: Patient appears restless, some shaking in legs observed. Speech: Patient's speech is with normal rate. Monotone with normal volume. Mood/Affect: Mood is very anxious, and affect is congruent/very anxious/dysphoric. Suicdality/Homicidality: Patient denies any suicidal or homicidal ideation, plan or intent. Perceptions: Patient denies any visual hallucinations and denies any auditory hallucinations. Though content/process: Ruminative and catastrophic. Memory and concentration: Remote memory impaired. Judgment and insight: Poor Vital Signs Temp 97.6 F 01/13/22 06:37 Pulse 85 01/13/22 06:37 Resp 16 01/12/22 20:44 BP 119/67 01/13/22 06:37 Pulse Ox 97 01/12/22 16:24 FiO2 Assessment Major depressive disorder, recurrent severe with psychotic features Generalized anxiety disorder Panic disorder with agoraphobia (provisional) Plan: -Patient continues to meet criteria for inpatient psychiatric admission for symptom stabilization and safety. Patient has signed adult voluntary form and medication consent and was placed in patient's chart. -Neurology evaluated the patient. Appreciate their recommendations. -Recommend Oncology to review medication of anastrazole. Side effects of medication include elevated anxiety and depression. -Medications: Continue Remeron 15 mg QHS for depression/sleep. Continue Effexor XR to 150 mg daily in the morning starting tomorrow AM for depression/anxiety. Continue Inderal 20 mg by mouth 3 times a day for anxiety and for tremors Continue Cogentin to 1 mg BID for EPS. Continue Risperdal 2 mg by mouth twice a day for mood stabilization Continue Ativan to 0.5 mg BID PRN for anxiety. -When necessary Ativan and Thorazine for agitation/aggression. -SW on board for discharge planning. Encouraged the patient to participate in milieu.
--- NOTE | 2022-01-13 11:47 | P.CNNES ---
History of Present Illness Consult date: 01/13/22 Requesting physician: Bebeto Trinh Reason for Consult: tremor History of Present Illness: This is a 61-year-old woman with medical history of left breast cancer status post chemotherapy, generalized anxiety disorder, bipolar and neurology teams consulted for tremor. Patient stated that she's been having tremor for more than 3 months and has been getting worse especially she is been in the inpatient psychiatry unit during this admission. She stated that the she feels very anxious and restless. She cannot tell me if she was started on any particular drug prior to having tremors. Initially she stated that it was started after chemotherapy but later she notified me and the the psychiatry nursing staff that this was not related to the chemotherapy and it was not started after the chemotherapy. She felt that she could not control the tremor. She stated that she had MRI of the brain as well as CT of the head and she had imaging the to her brain at the [facility] as well as [facility] and was told was normal and she had that within the last few months regarding her tremor. Patient is on Synthroid for hypothyroidism, she is on trazodone, Busprione. Anastrozole for her breast cancer Some of the workup during the her inpatient psychiatric visits consisted of: Her TSH is 7.9640 which is elevated but there is no free T4 but the repeated that TSH is 4.350 which is considered normal. Vitamin B12 is 951, serum folate is more than 20 Urine drug is positive for barbiturates. Review of Systems Review of system: The 12 point system was reviewed and apparent positive and negative per HPI. Past Medical History Past Medical History: Hyperlipidemia, Hypertension Additional Past Medical History / Comment(s): UTI and Breast cancer History of Any Multi-Drug Resistant Organisms: None Reported Past Surgical History: No Surgical Hx Reported Past Anesthesia/Blood Transfusion Reactions: No Reported Reaction Smoking Status: Never smoker Medications and Allergies Home Medications Medication Instructions Recorded Confirmed Type Anastrozole 1 mg PO DAILY 01/04/22 01/04/22 History DULoxetine HCL [Cymbalta] 30 mg PO DAILY 01/04/22 01/04/22 History Levothyroxine Sodium [Synthroid] 50 mcg PO DAILY 01/04/22 01/04/22 History Simvastatin 40 mg PO DAILY 01/04/22 01/04/22 History Zolpidem [Ambien] 10 mg PO HS PRN 01/04/22 01/04/22 History busPIRone HCl [Buspar] 15 mg PO BID 01/04/22 01/04/22 History lisinopriL [Zestril] 10 mg PO DAILY 01/04/22 01/04/22 History traZODone HCL [Trazodone HCl] 300 mg PO HS 01/04/22 01/04/22 History Allergies Allergy/AdvReac Type Severity Reaction Status Date / Time No Known Allergies Allergy Verified 01/04/22 02:35 Physical Examination - Vital Signs Vital Signs: Vital Signs Temp Pulse Resp BP Pulse Ox 01/13/22 06:37 97.6 F 85 119/67 01/12/22 20:44 102 H 16 115/79 01/12/22 16:24 97.9 F 16 107/71 97 GENERAL: The patient is lying in bed and is not in acute distress. CHEST: The heart rate is regular rate rhythm. No murmurs to auscultation. . LUNG: Clear to auscultation bilaterally no wheezing noted throughout. Not labored breathing. ABDOMEN/GI: Bowel sounds present in all 4 quadrants. No tenderness to palpation throughout. NEUROLOGICAL: Limited because of her cooperation. Higher mental function: The patient is awake, alert, oriented to self, place and time. Patient is following commands. No aphasia and no neglect. Cranial nerves: The pupils are round, right is 4mm and left is 5mm and reactive to light. Visual field are limited because of cooperatin. No facial weakness. NO dysarthria. Has some tremor of mouth but seems inconsistent. Motor: The strength is hard to assess individual muscles because of her coopera tion but moving all extremities above gravity without focality. Normal tone and bulk. Had tremor of uppers and lowers but seems inconsistent (when I had the patient stand up and walk, drastic improvement in her tremor. Also when distracted her tremors improve). Cerebellum: Normal finger to nose bilaterally. Sensation: Sensation is normal to touch throughout. Reflexes (right/left): 2+ throughout. Plantars are mute bilaterally. Results - Laboratory Findings CBC and BMP: 01/04/22 10:19 01/04/22 10:19 Abnormal Lab Findings: Abnormal Labs 01/04/22 01/05/22 01/05/22 10:19 06:00 06:00 Carbon Dioxide 21 L Glucose 105 H Vitamin B12 TSH 7.960 H Ur Leukocyte Esterase Small H Urine WBC 7 H Urine Bacteria Rare H Urine Mucus Few H Urine Barbiturates Positive A 01/07/22 16:00 Carbon Dioxide Glucose Vitamin B12 951.0 H TSH Ur Leukocyte Esterase Urine WBC Urine Bacteria Urine Mucus Urine Barbiturates Assessment and Plan Assessment: Her generalized tremor seems more anxiety related. With distraction her tremor improved as well as with ambulation tremor drastically improved. Cannot rule out medication side-effect (chemotherapy). Patient stated she had MRI of the brain and CT of the head at outside facility recently and was told was unremarkable. Hypothyroidism History of left breast cancer status post chemotherapy Generalized anxiety disorder Bipolar Plan: I ordered a free T4. She's currently on Synthroid and I'll defer the management to the primary team Since the patient had imaging she does not need repeated imaging. I will not order an EEG since this is not a seizure. She is currently on propranolol 21 g one tablet 3 times a day if possible can increase the dose of the medication for her generalized anxiety which can help with her tremors We'll defer the rest of the medical management to the primary and psychiatry team next Recommend the patient follow-up with neurology team as an outpatient within 3 weeks The plan was discussed with that psychiatrist. Thank you for the consultation Tarun Hutchins M.D. Neuro-hospitalist Time with Patient: Greater than 30
[2022-01-13] MEDS: MIRTAZAPINE 15 MG TAB PO SCH (20:36)
[2022-01-14] MEDS: chlorproMAZINE 25 MG TAB PO PRN (00:03)
[2022-01-14] MEDS: LORazepam 0.5 MG TAB PO PRN (00:03)
[2022-01-14] MEDS: lisinopriL 10 MG TAB PO SCH (08:17)
[2022-01-14] MEDS: BENZTROPINE MESYLATE 1 MG TAB PO SCH (08:17)
[2022-01-14] MEDS: LEVOTHYROXINE 50 MCG TAB PO SCH (08:17)
[2022-01-14] MEDS: PROPRANOLOL 20 MG TAB PO SCH ×2 (08:17→16:03)
[2022-01-14] MEDS: risperiDONE 2 MG TAB PO SCH (08:17)
[2022-01-14] MEDS: ATORVASTATIN 20 MG TAB PO SCH (08:17)
[2022-01-14] MEDS: VENLAFAXINE HCL ER 150 MG CAP PO SCH (08:17)
[2022-01-14] MEDS: ANASTROZOLE 1 MG TAB PO SCH (08:18)
[2022-01-14 08:35] VITALS: BP 116/74; PULSE 97
[2022-01-14] MEDS ORDERED: LORazepam 1 MG TAB PO STA (09:42)
--- NOTE | 2022-01-14 11:32 | P.DS ---
Providers Date of admission: 01/04/22 02:32 Expected date of discharge: 01/14/22 Attending physician: Bebeto Trinh MD Consults: 01/03/22 19:13 Consult Physician Routine Consulting Provider: Emily Vasquez Consult Reason/Comments: medical management Do you want consulting provider notified?: Yes 01/13/22 09:26 Consult Physician Routine Consulting Provider: Tarun Hutchins Consult Reason/Comments: Tremors Do you want consulting provider notified?: Yes Primary care physician: Stated None - Discharge Diagnosis(es) (1) Major depressive disorder, recurrent, severe with psychotic features Current Visit: Yes Status: Acute Priority: High (2) Generalized anxiety disorder with panic attacks Current Visit: Yes Status: Acute Priority: High Hospital Course: Admission HPI: Initial psychiatric evaluation was completed by Dr. Summers on 01/04/2022 who wrote: This is Dr. Juan Summers M.D. dictating the psychiatric assessment on Lara Ingram who is a 61-year-old female and who presents with severe anxiety and depression Patient remains a poor historian and is unable to give proper history When seen today she was sitting in the hallway rambling and talking to one of the staff members and was refusing to come into her room Patient stated that she was in the hospital because they messed up her medications at the last hospitalization She says that she has had 5 hospitalizations in the last 2 months and several of them were on the medical floor for hand tremors Patient states that she does not know what is going on She was unable to list her current medications and also is not willing to have any new medications started She states that she has difficulty with making any decisions at this time and wants more time She admits feeling overwhelmed and helpless and hopeless She did not verbalize any suicidal ideations or plans at this time She denied any substance use Patient's home medications includes lisinopril 10 mg daily Ambien 10 mg daily at bedtime when necessary Synthroid 50 g daily Simvastatin 40 mg daily Trazodone 300 mg daily at bedtime Cymbalta 30 mg daily Buspirone 15 mg twice a day Hospital course: Upon admission to the unit patient was initially presenting as dysphoric, feeling overwhelmed, helpless, and hopeless. She is also primarily uncooperative with staff and was sitting in the hallway and refusing to enter her room. The patient is also noted to be tremulous. Patient was however directable and agreeable to commence treatment. Patient was . Patient initially not started on any psychotropic medication as she refused them. However, the patient was then started on Inderal for anxiety and tremors, Remeron for insomnia, and Seroquel for insomnia and mood stabilization. The patient was eventually transitioned from Seroquel to Risperdal due to a lack of improvement in her target symptoms. She was also started on Valium for elevated anxiety. However, the patient continued to endorse significant anxiety despite numerous when necessary's of Ativan, Thorazine, scheduled Valium. The patient was also noted to be very confused and therefore the Valium was discontinued. The patient was then continued on her medications and was prescribed a regimen of Effexor to help with her anxiety symptoms. Over the course the hospitalization, the patient displayed gradual improvement in regards her target symptoms of anxiety. There was an order to keep her out of her room so that she may participate in milieu activities. When noted to be out of her room, the patient displayed significant improvement and was able to accomplish tasks and displayed inability to take care of her ADLs. Furthermore, the patient when observed by staff and this provider, did not display any tremulousness. However, when the patient was interviewed individually, she would begin being very tremulous and endorsing significant anxiety and stating "things are never getting better." She was often medication seeking and asking for numerous Ativan and at times would tell this provider that she would not leave the room until she receives medication to help her with her anxiety. Neurology was consulted for an evaluation of the patient who determined that the patient's tremors were also not present when she was ambulatory on her own or when she was directed to perform tasks. On the day of discharge, the patient is not reporting any suicidal or homicidal ideation, intention, and/or plan. She is not reporting any auditory or visual denying any paranoia or delusions. She continues to report issues regarding her insomnia however has been noted by staff to sleep and at this point, it is likely determined that the patient requires her home living situation in order to sleep comfortably due to her elevated anxiety. Although the patient does display elevated anxiety, she has displayed an ability to address her ADLs and is not presenting with any criteria for continued inpatient psychiatric admission. The patient also does not display any tremulous behavior when observed without her cognizance. The patient was counseled at length on the importance of medication adherence and appropriate outpatient follow-up. She was also encouraged to follow-up with her outpatient oncologist as a medication side effect of her anastrozole may include anxiety and depression. Prior to discharge, family meeting was arranged by outreach and education social worker to answer questions and ensure safety. Mental status exam: General Appearance: Patient appears to be stated age is alert and cooperative. P atient is in no acute distress and has fair hygiene and grooming Behavior: Patient is noted to be initially calm without any agitated or tremulous behavior however begins tremors when assessed in private. Speech: Patient's speech is fluent and nonpressured. Mood/Affect: Patient reports their mood is "still anxious", affect is congruent and nervous. Suicidality/Homicidality: Patient denies having any suicidal or homicidal ideation intent or plan. Perceptions: Patient denies any auditory or visual hallucinations. Though content/process: There is no evidence of any delusional thought content and thought process is linear and goal-directed. The patient does appear to be medication seeking. Memory and concentration: AOX3, grossly intact for the purposes of this session. Can spell "WORLD" backwards correctly. Judgment and insight: Fair Impression: Major depressive disorder, recurrent, severe, with psychotic features Generalized Anxiety disorder -Tremors appear to be psychogenic and not an essential tremor. However there will be recommendation for the patient to follow up with neurologist. Plan: -Continue with discharge today as patient has improved and stabilized psychiatrically and is not currently an imminent threat to herself and/or others. -Continue medications: Remeron 15 mg by mouth at bedtime for insomnia Effexor XR 150 mg by mouth daily for depression/anxiety Inderal 20 mg by mouth 3 times a day for anxiety and tremors Risperdal 2 mg by mouth twice a day for augmentation -Patient was counseled on the need for medication compliance and appropriate follow-up at mental health and also primary care for medical issues. Patient verbalized understanding and agreed. -Social work to arrange for and conduct family meeting to ensure safety upon discharge and answer any questions/concerns. Social work also to arrange for patients follow up appointments with [facility] in [place] for psychiatric care along with follow up with primary care provider. -Patient counseled on abstaining from recreational drugs and marijuana and alcohol. Was informed/educated on the adverse effects on their physical and mental health. Patient verbally agreed and understood. Recommend also follow up with neurology in the outpatient setting. -Patient was instructed to return to the hospital or seek immediate medical care if their psychiatric or medical symptoms do worsen or reoccur. -Psychoeducation and supportive therapy provided to patient. Risks and benefits of pharmacological treatment versus the risks and benefits of nontreatment weight and discussed. Informed consent discussion held. Common side effects of psychotropics discussed such as, but not limited to headache, GI disturbance, sexual dysfunction, movement disorders, sedation, and orthostatic hypotension. Life threatening and blackbox warnings of prescribed medications also discussed. Potential risks of operating a vehicle or heavy machinery discussed with patient at length. Advised on importance of compliance and a reliable and responsible manner. Patient advised to review FDA consumer labeling of all medications prior to taking. Patient verbalized understanding of potential risks, and agrees with current treatment plan. Patient advised to medically contact physician/emergency personnel if any acute changes in condition occur. Vital Signs Temp 97.6 F 01/13/22 06:37 Pulse 97 01/14/22 08:34 Resp 16 01/13/22 20:41 BP 116/74 01/14/22 08:34 Pulse Ox 97 01/12/22 16:24 FiO2 Laboratory Results WBC 6.8 k/uL (3.8-10.6) 01/04/22 10:19 RBC 4.53 m/uL (3.80-5.40) 01/04/22 10:19 Hgb 14.0 gm/dL (11.4-16.0) 01/04/22 10:19 Hct 41.0 % (34.0-46.0) 01/04/22 10:19 MCV 90.5 fL (80.0-100.0) 01/04/22 10:19 MCH 30.8 pg (25.0-35.0) 01/04/22 10:19 MCHC 34.0 g/dL (31.0-37.0) 01/04/22 10:19 RDW 14.2 % (11.5-15.5) 01/04/22 10:19 Plt Count 309 k/uL (150-450) 01/04/22 10:19 MPV 7.7 01/04/22 10:19 Neutrophils % 73 % 01/04/22 10:19 Lymphocytes % 19 % 01/04/22 10:19 Monocytes % 5 % 01/04/22 10:19 Eosinophils % 1 % 01/04/22 10:19 Basophils % 1 % 01/04/22 10:19 Neutrophils # 4.9 k/uL (1.3-7.7) 01/04/22 10:19 Lymphocytes # 1.3 k/uL (1.0-4.8) 01/04/22 10:19 Monocytes # 0.4 k/uL (0-1.0) 01/04/22 10:19 Eosinophils # 0.1 k/uL (0-0.7) 01/04/22 10:19 Basophils # 0.1 k/uL (0-0.2) 01/04/22 10:19 Sodium 137 mmol/L (137-145) 01/04/22 10:19 Potassium 4.6 mmol/L (3.5-5.1) 01/04/22 10:19 Chloride 104 mmol/L (98-107) 01/04/22 10:19 Carbon Dioxide 21 mmol/L (22-30) L 01/04/22 10:19 Anion Gap 12 mmol/L 01/04/22 10:19 BUN 17 mg/dL (7-17) 01/04/22 10:19 Creatinine 0.64 mg/dL (0.52-1.04) 01/04/22 10:19 Est GFR (CKD-EPI)AfAm >90 (>60 ml/min/1.73 sqM) 01/04/22 10:19 Est GFR (CKD-EPI)NonAf >90 (>60 ml/min/1.73 sqM) 01/04/22 10:19 Glucose 105 mg/dL (74-99) H 01/04/22 10:[address] Glu mg/dL 112 01/04/22 10:19 Hemoglobin A1c 5.5 % (0.0-6.0) 01/04/22 10:19 Calcium 9.6 mg/dL (8.4-10.2) 01/04/22 10:19 Total Bilirubin 0.5 mg/dL (0.2-1.3) 01/04/22 10:19 AST 23 U/L (14-36) 01/04/22 10:19 ALT 16 U/L (4-34) 01/04/22 10:19 Alkaline Phosphatase 79 U/L (38-126) 01/04/22 10:19 Total Protein 7.4 g/dL (6.3-8.2) 01/04/22 10:19 Albumin 4.5 g/dL (3.5-5.0) 01/04/22 10:19 Triglycerides 123.00 mg/dL (0.00-149.00) 01/04/22 10: Cholesterol 139.00 mg/dL (0.00-200.00) 01/04/22 10:19 LDL Cholesterol, Calc 69.3 mg/dL (0.0-131.0) 01/04/22 10: VLDL Cholesterol, Calc 24.60 mg/dL (5.00-40.00) 01/04/22 10: HDL Cholesterol 45.10 mg/dL (40.00-60.00) 01/04/22 10: Cholesterol/HDL Ratio 3.08 Ratio 01/04/22 10: Vitamin B12 951.0 pg/mL (200.0-944.0) H 01/07/22 16:00 Folate >20.00 ng/mL (4.40-31.00) 01/07/22 16:00 TSH 4.350 mIU/L (0.465-4.680) 01/07/22 16:00 Free T4 1.13 ng/dL (0.78-2.19) 01/14/22 07:05 Urine Color Yellow 01/05/22 06:00 Urine Appearance Clear (Clear) 01/05/22 06:00 Urine pH 5.5 (5.0-8.0) 01/05/22 06:00 Ur Specific [place] 1.012 (1.001-1.035) 01/05/22 06:00 Urine Protein Negative (Negative) 01/05/22 06:00 Urine Glucose (UA) Negative (Negative) 01/05/22 06:00 Urine Ketones Negative (Negative) 01/05/22 06:00 Urine Blood Negative (Negative) 01/05/22 06:00 Urine Nitrite Negative (Negative) 01/05/22 06:00 Urine Bilirubin Negative (Negative) 01/05/22 06:00 Urine Urobilinogen <2.0 mg/dL (<2.0) 01/05/22 06:00 Ur Leukocyte Esterase Small (Negative) H 01/05/22 06:00 Urine RBC 1 /hpf (0-5) 01/05/22 06:00 Urine WBC 7 /hpf (0-5) H 01/05/22 06:00 Ur Squamous Epith Cells <1 /hpf (0-4) 01/05/22 06:00 Urine Bacteria Rare /hpf (None) H 01/05/22 06:00 Urine Mucus Few /hpf (None) H 01/05/22 06:00 Urine HCG, Qual Not Detected (Not Detectd) 01/05/22 06:00 Urine Opiates Screen Negative (Negative) 01/05/22 06:00 Urine Methadone Screen Negative (Negative) 01/05/22 06:00 Ur Propoxyphene Screen Negative (Negative) 01/05/22 06:00 Urine Barbiturates Positive (Negative) A 01/05/22 06:00 Ur Phencyclidine Scrn Negative (Negative) 01/05/22 06:00 Ur Amphetamine Screen Negative (Negative) 01/05/22 06:00 U Benzodiazepines Scrn Negative (Negative) 01/05/22 06:00 Urine Cocaine Screen Negative (Negative) 01/05/22 06:00 U Cannabinoids Screen Negative (Negative) 01/05/22 06:00 Urine Alcohol Negative (Negative) 01/05/22 06:00 Allergies Allergy/AdvReac Type Severity Reaction Status Date / Time No Known Allergies Allergy Verified 01/04/22 02:35 Patient Condition at Discharge: Stable Plan - Discharge Summary Discharge Rx Participant: No New Discharge Prescriptions: New Mirtazapine [Remeron] 15 mg PO HS 30 Days tab Venlafaxine HCl ER [Effexor XR] 150 mg PO DAILY 30 Days cap Propranolol [Inderal] 20 mg PO TID 30 Days tab risperiDONE [RisperDAL] 2 mg PO BID 30 Days tab Continue Anastrozole 1 mg PO DAILY Simvastatin 40 mg PO DAILY lisinopriL [Zestril] 10 mg PO DAILY Levothyroxine Sodium [Synthroid] 50 mcg PO DAILY Discontinued traZODone HCL [Trazodone HCl] 300 mg PO HS DULoxetine HCL [Cymbalta] 30 mg PO DAILY busPIRone HCl [Buspar] 15 mg PO BID Zolpidem [Ambien] 10 mg PO HS PRN PRN Reason: Insomnia Discharge Medication List Anastrozole 1 mg PO DAILY 01/04/22 [History] Levothyroxine Sodium [Synthroid] 50 mcg PO DAILY 01/04/22 [History] Simvastatin 40 mg PO DAILY 01/04/22 [History] lisinopriL [Zestril] 10 mg PO DAILY 01/04/22 [History] Mirtazapine [Remeron] 15 mg PO HS 30 Days tab 01/14/22 [Rx] Propranolol [Inderal] 20 mg PO TID 30 Days tab 01/14/22 [Rx] Venlafaxine HCl ER [Effexor XR] 150 mg PO DAILY 30 Days cap 01/14/22 [Rx] risperiDONE [RisperDAL] 2 mg PO BID 30 Days tab 01/14/22 [Rx] Follow up Appointment(s)/Referral(s): [facility]Other[facility] - 1 Week [facility] [Outside] - 01/21/22 1:00 pm (Carlos Srinivasan 01/21/2022 @ 13:00 ) Patient Instructions/Handouts: Depression (DC), Generalized Anxiety Disorder (ED) Activity/Diet/Wound Care/Special Instructions: Avoid the use of street drugs and alcohol. Take all prescriptions as prescribed. When you are in need of refills on your medications, please contact your medical provider and/or outpatient psychiatrist to have this done. Please go to scheduled outpatient appointment for aftercare treatment. If symptoms return or become worse, call the crisis line at and/or go to the nearest emergency room for evaluation. Discharge Disposition: HOME SELF-CARE
== END 2022-01-14 16:00 | disposition home or self-care (01) | DRG 885 ==
LOC: 3MHU 01-04 02:32
PROVIDERS: ADMIT Psychiatry & Neurology Psychiatry; ATTEND Psychiatry & Neurology Psychiatry
DX: F31.5 Bipolar disorder, current episode depressed, severe, with psychotic features (principal); R45.851 Suicidal ideations; C50.912 Malignant neoplasm of unspecified site of left female breast; F44.4 Conversion disorder with motor symptom or deficit; Z28.310 Unvaccinated for COVID-19; F41.1 Generalized anxiety disorder; I10 Essential (primary) hypertension; E78.5 Hyperlipidemia, unspecified; E03.9 Hypothyroidism, unspecified; F40.01 Agoraphobia with panic disorder; G47.00 Insomnia, unspecified; Z79.811 Long term (current) use of aromatase inhibitors; Z79.890 Hormone replacement therapy; Z79.899 Other long term (current) drug therapy; Z92.21 Personal history of antineoplastic chemotherapy; Z92.3 Personal history of irradiation; Z90.12 Acquired absence of left breast and nipple; Z87.440 Personal history of urinary (tract) infections; W22.09XA Striking against other stationary object, initial encounter
CPT/HCPCS: 80053; 80061; 80306; 81001; 81025; 82607; 82746; 83036; 84439; 84443; 85025